=== PATIENT | female | born 1955 | race Caucasian/White ===

== ENCOUNTER → 2017-06-10 | Day surgery (SDC) | payer BC ==
[~2017-06-10] VITALS: Ht 144.8 cm; Wt 46.0 kg
[2017-06-10] VITALS (9 sets, daily range): BP systolic 91–158; BP diastolic 49–77; PULSE 55–69; TEMP 36.8; O2SAT 98–100; Ht 144.8 cm; Wt 46.0 kg
[~2017-06-10] MED LIST: AMOX500C3 PO; ANT25 PO; ASPCH81X PO; ATOR10TA88 PO; CLTP PO; LIDOCAINE HCL 2% 2 ML VIAL (20MG/ML) ONE; METO25TA3 PO; MULT-506 PO; NAPR-1169 PO; PROPOFOL IV EMULSION 10 MG/ML 20 ML VIAL IV ONE
--- NOTE | 2017-06-10 07:52 | HISTORY & PHYSICAL EXAMINATION ---
DATE OF ADMISSION: 06/10/2017 SUBJECTIVE: The patient is a 61-year-old female who presents today for transesophageal echo. 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 Since that time, the patient has been feeling well. She presented to my office in March for routine followup. A transthoracic echo was performed in May noting elevated aortic valve gradients suggesting possible stenosis. She presents today for transesophageal echo. REVIEW OF SYSTEMS: Pertinent positives noted above. A 10-system review is otherwise negative. PAST MEDICAL HISTORY: Subaortic membrane, severe aortic insufficiency, difficult airway for intubation, chest discomfort, palpitations. PAST SURGICAL HISTORY: As noted above. OUTPATIENT MEDICATIONS: 1. Toprol-XL 25 daily. 2. Atorvastatin 10 mg daily. 3. Amoxicillin prior to dental procedures. 4. Meclizine as needed. 5. Aspirin 81 mg daily. 6. Naproxen 500 mg as needed. 7. Calcium with vitamin D. FAMILY HISTORY: Mother with murmur, no premature CAD or sudden cardiac . SOCIAL HISTORY: She is a lifelong nonsmoker. PHYSICAL EXAMINATION: VITAL SIGNS: Stable. GENERAL: NAD, awake, alert and oriented x3. HEAD, EYES, EARS, NOSE, AND THROAT: Mucous membranes moist. No scleral icterus. Conjunctivae pink. NECK: Supple without JVD or HJR. No carotid bruit. HEART: Regular with a normal S1, S2. There is a 2/6 systolic ejection murmur heard best at the cardiac base. LUNGS: Clear without rales, rhonchi or wheeze. ABDOMEN: Soft, nontender. No rebound or guarding. EXTREMITIES: Warm and dry without clubbing, cyanosis or edema. NEUROLOGIC: Demonstrates no focal deficit. FINAL IMPRESSION: 1. A 61-year-old female presents for transesophageal echo due to recent resting 2D transthoracic echo suggesting possible bioprosthetic aortic valve stenosis. 2. History of subaortic membrane with severe aortic insufficiency, status post septal myomectomy, aortic valve replacement with a #19 CE pericardial valve and aortic endarterectomy. 3. History of difficult intubation. 4. Hypertension. 5. Dyslipidemia. 6. Mild carotid vascular disease. PLAN AND RECOMMENDATIONS: The patient will have a transesophageal echo performed this morning. Risks, benefits and alternatives were discussed at length. She is agreeable. Anesthesia will provide moderate sedation. MTDD
--- NOTE | 2017-06-10 09:03 | Discharge Instructions ---
Discharge Instructions Procedure Procedure Date: Jun 10, 2017. Reason for Visit: Hx Aortic Valve Replacement, *Real Doing*. Discharge Discharge Date: Jun 10, 2017. Discharge Diagnosis: Status post transesophageal echo. Last Recorded Wt (Kilograms): 46 Anesthesia Post Anesthesia Instructions: If you have had General Anesthesia or IV Sedation: * Do not drive today. * Resume driving when surgeon permits. * Do not make important decisions or sign legal documents today. * Call surgeon for: 1. Temperature elevations greater than 101 degrees F. 2. Uncontrollable pain. 3. Excessive bleeding. 4. Persistent nausea and vomiting. 5. Medication intolerance (nausea, vomiting or rash). * For nausea and vomiting use only clear liquids such as: tea, soda, bouillon until nausea subsides, then gradually increase diet as tolerated. * If you have any concerns or questions, call your surgeon's office. If physician is unavailable and it is an emergency, call 911 or go to the nearest emergency room. Instructions Activity Recommendations: limitations as noted below Return to School/Work: with the following limitations Recommended Home Diet: resume previous diet Allergies: Coded Allergies: Sulfamethoxazole w/Trimethoprim (Unverified Adverse Reaction, Mild, Weakness, 09/24/14) Provider Instructions ACTIVITY RECOMMENDATIONS: Resume activities as tolerated with no limitations unless specified. _x_ No lifting over 10 pounds for 24 hours. _x_ Do not engage in vigorous exercise, sexual activity, or sports for 24 hours. _x_ Do not drive or operate any motorized equipment for 24 hours. _x_ You may return to work/school tomorrow. _x_ Nothing to eat or drink until gag reflex returns. _x_ No HOT or WARM liquids for 12 hours. _x_ Avoid "scratchy" foods such as potato chips or pretzels for 24 hours following procedure. SPECIAL CARE: If you experience coughing up or vomiting of blood, contact Dr. Noble, Follow Up Follow-up with: Dr. Noble as scheduled. Guillermina Chavezy Recommendations: Call your doctor if: * Temperature above 101 degrees * Pain not relieved by pain medicine ordered * There is increased drainage or redness from any incision * You have any unanswered questions or concerns. Your Doctors Instructions noted above were prepared by provider Rocky Noble. Patient Signature Section: Patient Instructions Signature Page Rafael Snell Patient (or Guardian) Signature/Date: I have read and understand the instructions given to me by my caregivers. Caregiver/RN/Doctor Signature/Date: The above-named patient and/or guardian has received patient instructions on this date. + Original Patient Signature Page (only) stays with chart. Please make copy for patient.
--- NOTE | 2017-06-10 09:12 | Anesthesiology Progress Note ---
Anesthesia Post Op Note Date & Time Jun 10, 2017 at 09:11 Vital Signs Pain Intensity: 0 Vital Signs Past 12 Hours Date Time Temp Pulse Resp B/P (MAP) Pulse Ox O2 Delivery O2 Flow Rate FiO2 06/10/17 09:00 49 16 130/61 (84) 98 Room Air 06/10/17 08:45 50 16 122/63 (82) 98 Room Air 06/10/17 08:26 57 16 113/58 (76) 99 Room Air 06/10/17 08:16 64 16 115/57 (76) 99 Nasal Cannula 4 06/10/17 08:16 66 16 115/57 98 Nasal Cannula 4 06/10/17 08:11 69 16 107/49 98 Nasal Cannula 4 06/10/17 08:07 65 16 98/49 100 Nasal Cannula 4 06/10/17 08:02 64 16 91/49 100 Nasal Cannula 4 06/10/17 07:57 65 16 110/58 99 Nasal Cannula 4 06/10/17 07:52 67 16 148/63 100 Nasal Cannula 4 06/10/17 07:47 68 16 156/72 100 Nasal Cannula 4 06/10/17 07:06 36.8 55 16 158/77 99 Room Air Notes Mental Status: alert / awake / arousable, participated in evaluation Pt Amnestic to Procedure: Yes Nausea / Vomiting: adequately controlled Pain: adequately controlled Airway Patency, RR, SpO2: stable & adequate BP & HR: stable & adequate Hydration State: stable & adequate Anesthetic Complications: no major complications apparent
--- NOTE | 2017-06-11 17:15 | TEE ---
*NOTICE TO RECEIVING [employer] This information is strictly Confidential and protected under [place] law. [place] law prohibits you from making any further disclosure of this information unless further disclosure is expressly permitted by the written consent of the person to whom it pertains or is authorized by law. A general authorization for the release of medical or other information is not sufficient for this purpose. Hospital accepts no responsibility if the information is made available to any other person, INCLUDING THE PATIENT. Interpretation Summary * Name: MAGDY RICHARD Study Date: 06/10/2017 07:27 AM BP: 158/77 mmHg * Patient Location: [facility] HR: 68 * : 1955 (M/d/yyyy) Gender: Female Height: 59 in * Age: 61 yrs Ethnicity: [place] Weight: 105 lb * Ordering Physician: Rocky Noble DO * Referring Physician: Rocky Noble DO * Performed By: Iva Casas [facility] * * Reason For Study: HX AORTIC VALVE REPLACEMENT * BSA: 1.4 m2 * -- Conclusions -- * There is a bioprosthetic aortic valve. * The prosthetic aortic valve is not well visualized. * Leaflet motion appears moderately restricted in limited views. 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 * No significant bioprosthetic aortic valve regurgitation. * Small sub aortic membrane measuring 0.60cm visualized. * The aortic root and ascending aorta are borderline dilated, measuring 3.9cm diameter. * Ejection Fraction = 60-65%. Procedure Details * LIDIA Probe #1 utilized for procedure. * The study was performed in Cardiac Catheterization Lab. * Time out was conducted by the physician, nurse, and data communications technician with positive identification of patient and procedure. * Informed consent for Transesophageal Echocardiogram was obtained prior to the procedure. * An intravenous line was placed. A topical anesthetic agent was used for oropharangeal anesthesia. A bite block was inserted. * Sedation performed by the anesthesia department. * SEDATION GIVEN BY ANESTHESIA: 60 MG LIDOCAINE 330 PROPOFOL TIME OUT: 746 PROBE IN: 748 PROCEDURE END / PROBE OUT: 810 * The patient's vital signs, including blood pressure, heart rate, pulse oximetry and cardiac rhythm were monitored throughout the procedure . * The posterior oropharynx was anesthetized using a topical anesthetic spray. A bite guard was inserted. * The transesophageal probe was passed without difficulty. * The usual views were obtained; basal, mid-esophageal, transgastric and aortic views. * The patient tolerated the procedure well without evidence of orophangeal or esophageal trauma. * A 2D transesophageal echocardiogram with spectral and color flow Doppler was performed. * A 2D transesophageal echocardiogram with Doppler and color flow Doppler was performed. Left Ventricle * The left ventricle is normal in size. * Small sub aortic membrane measuring 0.60cm visualized. * There is normal left ventricular wall thickness. * Left ventricular systolic function is normal. * Ejection Fraction = 60-65%. * The left ventricular wall motion is normal. Right Ventricle * The right ventricle is normal in size and function. Atria * The left atrial size is normal. * No thrombus is detected in the left atrial appendage. * Right atrial size is normal. Mitral Valve * The mitral valve anatomy is normal. * There is no mitral valve stenosis. * There is trace mitral regurgitation. Tricuspid Valve * The tricuspid valve is normal. * There is no tricuspid stenosis. * No tricuspid regurgitation. Aortic Valve * The aortic valve is trileaflet. * No hemodynamically significant valvular aortic stenosis. * No aortic regurgitation is present. * The prosthetic aortic valve is not well visualized. Leaflet motion appears moderately restricted in limited views. 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 No significant bioprosthetic aortic valve regurgitation. * There is a bioprosthetic aortic valve. Pulmonic Valve * The pulmonic valve is not well seen, but is grossly normal. Great Vessels * The aortic root and ascending aorta are borderline dilated, measuring 3.9cm diameter. * No significant aortic atheromatous plaque visualized. Pericardium * There is no pericardial effusion.
== END | disposition home or self-care (01) ==
LOC: C.CATH 06:34
PROVIDERS: ATTEND Internal Medicine Cardiovascular Disease
DX: I35.1 Nonrheumatic aortic (valve) insufficiency (principal); I10 Essential (primary) hypertension; E78.5 Hyperlipidemia, unspecified; Z95.2 Presence of prosthetic heart valve; Z79.82 Long term (current) use of aspirin; Z79.899 Other long term (current) drug therapy